=== PATIENT | female | born 1945 | race Caucasian/White ===

== ENCOUNTER → 2017-11-05 14:38 | Outpatient (CLI) | payer MEDICARE, SELFPAY ==
--- NOTE | 2017-11-05 14:42 | DI.RAD.S_ITS ---
PROCEDURE: XR ANKLE RT MIN 3V INDICATIONS: right ankle pain/swelling TECHNIQUE: 3 views of the ankle were acquired. COMPARISON: None. FINDINGS: Bones: No fractures or dislocations. Ankle mortise is normally aligned. No suspicious bony lesions. Soft tissues: No tibiotalar joint effusion. Achilles tendon appears normal. IMPRESSION: No acute fracture. No osseous lesion. If clinical suspicion and/or symptoms persist, further assessment with repeat plainfilms, or advanced imaging (e.g., CT, MRI, or bone scan) may be helpful for further assessment. Dictated by: Carlo Abdul M.D. on 11/05/2017 at 15:08 Approved by: Carlo Abdul M.D. on 11/05/2017 at 15:09
== END ==
PROVIDERS: Visit Provider Physician Assistant
DX: M25.571 Pain in right ankle and joints of right foot (principal); R22.41 Localized swelling, mass and lump, right lower limb; S93.401A Sprain of unspecified ligament of right ankle, initial encounter
CPT/HCPCS: 73610